=== PATIENT | male | born 1980 | race Two or more races ===

== ENCOUNTER 2023-06-01 18:03 | Emergency (ER) | payer OTHER ==
[~2023-06-01] VITALS: Ht 167.6 cm; Wt 90.0 kg
[2023-06-01 19:27] VITALS: TEMP 98.9
[2023-06-01] MEDS: AMOX TR/POT CLAV 875 MG/125 MG TABLET PO ONE (21:23)
[2023-06-01] MEDS: MOXIFLOXACIN HCL 0.5% 3 ML OPHTHALMIC SOLUTION OS ONE (22:03)
[2023-06-01] MEDS: PROPARACAINE HCL 0.5% 15 ML OPHTHALMIC SOLUTION OS ONE (22:26)
[2023-06-01] MEDS: BACITRACIN 28 GM OINTMENT TP ONE (22:54)
[2023-06-01 22:59] VITALS: BP 104/60; PULSE 64; RESP 16
== END 2023-06-01 23:06 | disposition home or self-care (01) ==
LOC: EMS 18:05
DX: H00.015 Hordeolum externum left lower eyelid (principal); H00.035 Abscess of left lower eyelid
CPT/HCPCS: 10060; 67700; 99284; 0; J9035; Z7502; Z7610